=== PATIENT | male | born 1970 | race Caucasian/White ===

== ENCOUNTER 2019-04-03 13:15 | Outpatient (RCR) | payer OTHER, SELFPAY ==
[2019-02-20 13:35] LABS: INR 2.7; Prothrombin Time 28.1 Seconds (9.64-11.0)
[2019-04-03 13:45] LABS: INR 2.3; Prothrombin Time 24.2 Seconds (9.64-11.0)
== END 2019-05-21 23:59 | disposition home or self-care (01) ==
LOC: CHSLAB 13:15
PROVIDERS: Visit Provider Family Medicine
DX: Z79.01 Long term (current) use of anticoagulants (principal)
CPT/HCPCS: 36415; 85610

== ENCOUNTER 2019-05-11 20:05 | Emergency (ER) | payer OTHER, SELFPAY ==
--- NOTE | ~2019-05-11 | XR_ITS ---
XR chest 1V portable 05/11/2019 20:35 Indication: Left arm pain. Shortness of breath. Diffuse chest pressure. Procedure: AP portable chest Comparison: 09/08/2018 Findings: Moderate cardiomegaly. Patchy bilateral airspace disease. No pleural effusion or pneumothor ax. There is chronic right upper lobe scarring with pleural thickening. Impression: 1: Patchy bilateral airspace disease, suspicious for pneumonia. Edema is less favored. 2: Moderate cardiomegaly. 3: Chronic right upper lobe pleural parenchymal scarring. Reviewed, dictated and finalized at location A. [employer]PER[employer] Impression: 1: Patchy bilateral airspace disease, suspicious for pneumonia. Edema is less f avored. 2: Moderate cardiomegaly. 3: Chronic right upper lobe pleural parenchymal scarring.
[2019-05-11 20:15] VITALS: BP 107/78; PULSE 120; PULSE 121; RESP 20; TEMP 36.1; O2SAT 100
--- NOTE | 2019-05-11 20:18 | ECG_ITS ---
Measurements Intervals [place] Rate: 120 P: 59 AL: 178 QRS: -85 QRSD: 130 T: 91 QT: 319 QTc: 452 Interpretive Statements SINUS TACHYCARDIA LEFT ATRIAL ENLARGEMENT INTRAVENTRICULAR CONDUCTION DELAY INFERIOR INFARCT, AGE INDETERMINATE ANTEROLATERAL ST ELEVATION MYOCARDIAL INFARCT- ACUTE HIGH LATERAL ST ELEVATION MYOCARDIAL INFARCT- ACUTE BASELINE WANDER- V4 ABNORMAL ECG Electronically Signed On 05-12-2019 17:23:57 [employer] by Shawn Wolfe D.O.
[2019-05-11 20:20] VITALS: O2SAT 100
[2019-05-11] MEDS: ASPIRIN 81 MG CHEWABLE TABLET 324 MG PO (20:22)
[2019-05-11 20:29] LABS: Basophils Absolute Auto 0.03 K/mm3 (0.00-0.10); Basophils Percent Auto 0.2 % (0.0-1.0); Eosinophils Absolute Auto 0.01 K/mm3 (0.02-0.50); Eosinophils Percent Auto 0.1 % (1.0-6.0); Hematocrit 40.8 % (40.0-54.0); Hemoglobin 13.6 g/dL (14.0-18.0); Immature Granulocyte Absolute 0.03 K/mm3 (0.00-0.00); Immature Granulocyte Percent A 0.2 % (0.0-0.0); Lymphocytes Absolute Auto 2.16 K/mm3 (1.10-4.50); Lymphocytes Percent Auto 16.8 % (18.0-42.0); Mean Corpuscular HGB Conc 33.3 g/dL (32.0-36.0); Mean Corpuscular Hemoglobin 34.5 pg (27.0-31.0); Mean Corpuscular Volume 103.6 fL (78.0-102.0); Mean Platelet Volume 11.9 fl (8.7-11.0); Monocytes Absolute Auto 1.07 K/mm3 (0.10-0.90); Monocytes Percent Auto 8.3 % (2.0-11.0); Neutrophils Absolute Auto 9.5 K/mm3 (1.7-7.2); Neutrophils Percent Auto 74.4 % (50.0-70.0); Nucleated Red Blood Cells Absolute Auto 0.02 K/mm3 (0.00-0.00); Nucleated Red Blood Cells Perc 0.2 % (0-0.0); Platelet Count Result 152 K/mm3 (150-420); Red Blood Count 3.94 M/mm3 (4.70-6.10); Red Cell Distribution Width 14.3 % (11.6-14.4); White Blood Count 12.8 K/mm3 (4.8-10.8)
[2019-05-11] MEDS: HEPARIN SOD/D5W 100 UNITS/ML 25,000 UNITS/250 ML BAG 9.18 UNITS IV CONT (20:29)
[2019-05-11] MEDS: ONDANSETRON INJ 4 MG/2 ML VIAL (20:34)
[2019-05-11] MEDS: TICAGRELOR 90 MG TABLET 180 MG PO (20:42)
--- NOTE | 2019-05-11 20:45 | ED.CHESTPAIN ---
HPI - Chest Pain General Chief Complaint: Chest Pain Stated Complaint: arm pain, pain in chest, SOB, pain in stomach Source: patient Mode of arrival: ambulatory Limitations: no limitations History of Present Illness HPI narrative: patient presents with a chest pressure and chest tightness started yesterday off and on and some occurred again this evening substernal with some radiation has been short of breath with nausea, has been diaphoretic. Patient has some mild abdominal discomfort with shortness of breath, the patient has a history of cardiomyopathy and history of pulmonary embolism which he is on Coumadin far. The patient is current smoker with a history of a cardiomyopathy/pulmonary embolism/hypertension/ hyperlipidemia. With a positive family history of heart attack in his father. complaint: chest pain, chest heaviness and chest discomfort Pertinent past history: other ( Cardiomyopathy and pulmonary embolism) Onset (ago): hour(s) Timing of current episode: constant Prior episodes: Yes Onset: during rest Pain location: substernal Pain radiation: left arm Severity: moderate Pain scale (0-10): 6 Quality: tightness and heaviness Exacerbating factors: exertion Associated symptoms: nausea Treatment prior to arrival: none Risk Factors Coronary artery disease risk factors: smoking history, hyperlipidemia, hypertension and family history of CAD before age 50 Pulmonary embolism risk factors: history of pulmonary embolism Related Data Home Medications Medication Instructions Recorded Confirmed carvedilol [Coreg] 3.125 mg PO BID 05/11/19 05/11/19 lisinopril 2.5 mg PO DAILY 05/11/19 05/11/19 triamcinolone aceton-silicones 1 applic TOPICAL DAILY 05/11/19 05/11/19 Allergies Allergy/AdvReac Type Severity Reaction Status Date / Time Hydrocodone/Acetaminophen Allergy Intermediate Uncoded 02/13/19 10:23 [place] Allergy Intermediate Uncoded 02/13/19 10:23 Review of Systems Review of Systems: All systems reviewed & are unremarkable except as noted in HPI and below PMFSH Past Medical History Medical History Cardiomyopathy HLD (hyperlipidemia) HTN (hypertension) Pulmonary embolism Family History Family History (Updated 05/11/19 @ 20:50 by Navjot Infante MD) Father Acute myocardial infarction Social History Social History Smoking status: Current every day smoker Exam Const: General: no acute distress and alert Orientation/consciousness: patient oriented x3 HENMT: Head: normal to inspection Eyes: Conjunctivae: conjunctivae normal Pupils: Equal, round and reactive pupils present Neck: Neck: normal visual inspection and no lymphadenopathy Chest: Chest palpation & inspection: normal inspection of the chest Resp: Effort & Inspection: normal respiratory effort Auscultation: clear to auscultation bilaterally Cardio: Rate: regular rate Rhythm: regular rhythm : Testes: Testes normal Skin: General skin exam: normal color Neuro: General: patient oriented x3 and moves all extremities Extrem: General: normal to inspection Course Transfer Transfered to: Other ([facility]) Transportation: ALS Transfer rationale: higher acuity hospital/ cardiac catheterization center Accepting physician: Dr. Pike/ cardiology MDM - Chest Pain Lab Data Result diagrams: 05/11/19 20:26 05/11/19 20:26 Labs: Lab Results 05/11/19 05/11/19 05/11/19 Range/Units 20:26 20:26 20:26 WBC 12.8 H (4.8-10.8) K/mm3 RBC 3.94 L (4.70-6.10) M/mm3 Hgb 13.6 L (14.0-18.0) g/dL Hct 40.8 (40.0-54.0) % MCV 103.6 H (78.0-102.0) fL MCH 34.5 H (27.0-31.0) pg MCHC 33.3 (32.0-36.0) g/dL RDW 14.3 (11.6-14.4) % Plt Count 152 (150-420) K/mm3 MPV 11.9 H (8.7-11.0) fl Immature Gran % (Auto) 0.2 H (0.0-0.0) % Neut % (Auto) 74.4 H
[2019-05-11 20:51] LABS: Alanine Aminotransferase 539 U/L (16-63); Albumin Level 3.2 g/dL (3.4-5.0); Alkaline Phosphatase 80 U/L (46-116); Anion Gap 18.9 mmol/L (7-16); Aspartate Amino Transferase > 796 U/L (15-37); Bilirubin,Total 3.1 mg/dL (0.00-1.00); Blood Urea Nitrogen 34 mg/dL (7-18); Calcium 8.7 mg/dL (8.5-10.1); Carbon Dioxide 22 mmol/L (21-32); Chloride 100 mmol/L (98-108); Estimated CRCL calculation 44 ml/min; Estimated Glomerular Filt Rate 37; Glucose 151 mg/dL (70-99); Osmolality Calculated 292 mOsm/kg (285-295); Potassium 4.9 mmol/L (3.5-5.1); Sodium 136 mmol/L (136-145); Total Protein 6.5 g/dL (6.4-8.2)
[2019-05-11 20:52] LABS: Troponin I > 80.00 ng/mL (0.00-0.056)
[2019-05-11 20:53] VITALS: BP 97/78; PULSE 117; RESP 20; O2SAT 100
[2019-05-11 20:54] LABS: INR 1.6; Partial Thromboplastin Time 27.9 SEC (22.3-31.6); Prothrombin Time 16.4 Seconds (9.64-11.0)
--- NOTE | 2019-05-11 20:54 | PC.NURSE ---
20:18 [facility] contacted, not flying due to weather, [facility] accepted for ground crew transport at 20:25. 22:50 Awaiting [facility] ground crew arrival. Pt. stable at this time. Mon. continues to show S-Tach.
[2019-05-11] MEDS: SODIUM CHLORIDE 0.9% IV 1,000 ML 999 ML IV CONT (21:06)
[2019-05-11 21:19] VITALS: BP 89/64; PULSE 118; RESP 20; O2SAT 100
--- NOTE | 2019-05-11 21:24 | PC.NURSE ---
Call placed to [facility] at time of d/c and report given to [facility] crew for transfer.
--- NOTE | 2019-05-11 21:58 | PC.NURSE ---
IVF NS infusing [facility] at time of transfer at 2114
--- NOTE | 2019-05-11 21:59 | PC.NURSE ---
Addendum---After ERP discussed need for transfer due to EKG findings and STEMI, Pt. 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 Protocol for stat heart initiated at 20:19
== END 2019-05-11 21:12 | disposition short-term general hospital (02) ==
PROVIDERS: Emergency Provider Emergency Medicine
DX: I21.3 ST elevation (STEMI) myocardial infarction of unspecified site (principal)
CPT/HCPCS: 36415; 71045; 80053; 84484; 85025; 85610; 85730; 93005; 96361; 96374; 96375; 99285; 99291; A9270; J1644; J2405; J7030